=== PATIENT | female | born 1970 | race Caucasian/White ===

== ENCOUNTER 2016-12-21 22:48 | Observation (INO) | payer BC ==
--- NOTE | ~2016-12-21 | HP ---
History And Physical [id number] [place]. [address] NAME: JAMSHID SANTANA : 66 STATUS : ADM Kelle PAT#: [id number] AGE: 46 ADM/REG DATE : 12/21/16 MR#: [id number] REPORT SERV DATE: 12/22/16 DICTATED BY: ANITHA JIMENEZ DATE: 12/22/16 REPORT STATUS : Draft TRANSCRIBED BY: MAX DATE: 12/22/16 DATE OF ADMISSION: 12/21/2016 FIELD PROJECT MANAGER: Kendrick Oates M.D. CHIEF COMPLAINT: Atypical chest pain. HISTORY OF PRESENT ILLNESS: A very pleasant 46-year-old white female with no known history of CAD, states that yesterday at work in the morning while talking to a co-worker she developed a chest pain. She thought it was acid reflux, she took some Tums with no relief. The discomfort persisted throughout the morning, she actually became nauseous. She describes her discomfort as a "dull ache." She decided to eat lunch of a chicken sandwich, but the discomfort persisted. She tried Zantac and Phazyme. She reports associated nausea and belching, but no shortness of breath, diaphoresis, or dizziness. At home, the discomfort actually radiated into her left side. She reports a blood pressure at home of 170/100. At its most intense, the chest pain was a 5/10. At time of interview in the [facility], she rates it a 1 out of 10, and the episodes lasted "most of the day." The patient denies any personal history of myocardial infarction, stroke, DVT, or pulmonary embolus. The patient denies any recent fever or chills. Does describe some palpitations. Consumes two 12-ounce Mountain Dews per day or less. No syncopal episodes. Denies PND or orthopnea. PAST MEDICAL HISTORY: 1. Hypertension. 2. Dyslipidemia with reported elevated high HDL, currently not on a statin and followed by PCP. 3. GERD. 4. Tobacco abuse. SURGICAL HISTORY: 1. Hysterectomy. 2. Cholecystectomy. 3. Tonsillectomy. 4. Right shoulder repair. SOCIAL HISTORY: She is with blended family of four children. 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 She walks on a treadmill 30 minutes per day four times per week without incident. Smokes one-half to a pack of cigarettes per day for 30 years. Rarely consumes alcohol. Denies illicits. FAMILY HISTORY: No embolic events reported in first-degree relatives. REVIEW OF SYSTEMS: A 14-point review of systems performed, significant for HPI. No other contributory diagnoses identified. History And Physical [address] [place]. [address] NAME: JAMSHID SANTANA : 66 STATUS : ADM Kelle PAT#: [id number] AGE: 46 ADM/REG DATE : 12/21/16 MR#: [id number] REPORT SERV DATE: 12/22/16 DICTATED BY: ANITHA JIMENEZ DATE: 12/22/16 REPORT STATUS : Draft TRANSCRIBED BY: MAX DATE: 12/22/16 ALLERGIES: PHENERGAN, DOUBLE VISION; REGLAN, ANXIETY; AND AMLODIPINE, RASH. MEDICATIONS: Home medicines aspirin 81 mg daily and p.r.n.; vitamin B12, 1500 mcg daily; losartan 100 mg daily, and Ambien 5 to 10 mg nightly. PHYSICAL EXAMINATION: BLOOD PRESSURE: 139/76. PULSE: 61. RESPIRATORY RATE: 16. TEMPERATURE: 97.9. O2 saturation 96% on room air. HEIGHT: 5 feet 3 inches. WEIGHT: 173 pounds. BMI 30. GENERAL: Cooperative, in no apparent distress. HEENT: Pupils 2 mm, sclera nonicteric. Nares patent. Moist mucous membranes. No xanthelasma. NECK: Trachea midline, no thyromegaly. No JVD. No bruits. LYMPH: No cervical lymphadenopathy. No supraclavicular lymphadenopathy. RESPIRATORY: Unlabored respirations. Breath sounds clear bilaterally to posterior auscultation. No wheezes or rhonchi. CARDIOVASCULAR: Regular rate. No murmur, rub or gallop appreciated. Extremities without edema. Pulses 2+ bilaterally. ABDOMEN: Soft, nontender, nondistended, normal bowel sounds auscultated throughout. No organomegaly. SKIN: Warm, dry extremities. No pallor, or cyanosis. PSYCHIATRIC: Appropriate affect. Alert, oriented x3. LABORATORY DATA: Troponin less than 0.02 x3. Potassium 3.5, BUN 14, creatinine 0.94, glucose 115, magnesium 2.1, WBC 6.4, hemoglobin 13.2, hematocrit 38.3, and platelet count 223,000. EKG: Sinus rhythm, first-degree AV block, PRWP. MPI, 04/2014: Tony stage 3, 7 minutes, 10 METs, no ischemia. ASSESSMENT AND PLAN: 1. Chest pain in patient with risk factors. Has been observed in the CPOU overnight to rule out myocardial infarction with serial enzymes and serial EKGs and held n.p.o. We will proceed with MPI today. Home if low risk, no ischemia. If anything suggestive of ischemia, Cardiology referral will be initiated. Otherwise, the patient be asked to follow up with her PCP and Dr. Oates as appropriate. 2. Hypertension, monitor blood pressure and continue home medications. 3. Dyslipidemia, diet and exercise discussed. Reports cholesterol followed by PCP. 4. Tobacco abuse, counseled regarding cessation for cardiovascular health and well being. JONNIE/MAX Anitha Jimenez, MSN, HOUSE MANAGER-BC / [phone] History And Physical [address] [address] NAME: JAMSHID SANTANA : 66 STATUS : ADM Kelle PAT#: [id number] AGE: 46 ADM/REG DATE : 12/21/16 MR#: [id number] REPORT SERV DATE: 12/22/16 DICTATED BY: ANITHA JIMENEZ DATE: 12/22/16 REPORT STATUS : Draft TRANSCRIBED BY: MODL DATE: 12/22/16 CC: Anitha Jimenez, MSN, HOUSE MANAGER-BC Saleem Ramos M.D. Kendrick Oates M.D.
[~2016-12-21 22:48] MED LIST: AMB10 PO; MICROZIDE PO; MYTAB GAS125 MG PO; NASACORTAQ NAS; PHENTERMINE37.5 M1 PO; ZANTAC 150 PO; [UNRECOGNIZED DRUG - OTHER] PO; [UNRECOGNIZED DRUG - OTHER] PO
[2016-12-21 23:02] LABS: BASOPHILS 0.2 %; BASOPHILS ABSOLUTE 0.01 10/3/uL (0.0-0.16); EOSINOPHILS ABSOLUTE 0.13 10/3/uL (0.0-0.53); HEMATOCRIT 38.3 % (36.0-48.0); HEMOGLOBIN 13.2 g/dL (12.0-16.0); IMMATURE GRANULOCYTES 0.2 %; IMMATURE GRANULOCYTES ABSOLUTE 0.01 10/3/uL (0.0-0.11); LYMPHOCYTES ABSOLUTE 2.37 10/3/uL (0.67-4.30); MEAN CORPUS HGB CONC 34.5 g/dL (32.0-36.0); MEAN CORPUSCULAR HEMOGLOB 32.8 pg (26.0-34.0); MEAN PLATELET VOLUME 9.6 fL (9.2-13.0); MONOCYTES 6.4 %; MONOCYTES ABSOLUTE 0.41 10/3/uL (0.21-1.20); NEUTROPHILS 54.2 %; NEUTROPHILS ABSOLUTE 3.47 10/3/uL (2.02-8.40); PLATELET COUNT 223 10/3/uL (150-400); RBC DISTRIBUTION WIDTH 13.5 % (12.0-16.0); RED CELL COUNT 4.03 10/6/uL (4.0-5.6); WHITE BLOOD CELLS 6.4 10/3/uL (4.5-10.5)
[2016-12-21 23:03] LABS: ER CBC TAT 0 Hrs 03 MinsNP; MANUAL DIFF NO %
[2016-12-21 23:10] LABS: PARTIAL THROMBO TIME 29.2 SEC (22.5-37.2); PROTIME (NOT ORD) 12.6 SEC (12.0-14.5)
[2016-12-21 23:19] LABS: BUN (BLOOD UREA NITROGEN) 14 MG/DL (6-23); CALCIUM, SERUM 9.5 MG/DL (8.5-10.4); CHEST PAIN PROFILE TAT 0 Hrs 20 Mins; CHLORIDE, SERUM 110 MMOL/L (96-112); CO2 (CARBON DIOXIDE) 28 MMOL/L (24-34); CREATININE 0.94 MG/DL (0.55-1.02); GFR AFRICAN AMERICAN 83 ML/MIN (>=60); GFR NON AFRICAN AMERICAN 72 ML/MIN (>=60); POTASSIUM, SERUM 3.5 MMOL/L (3.5-5.3); SODIUM, SERUM 145 MMOL/L (135-148); TROPONIN I <0.02 NG/ML (<0.05)
[2016-12-21 23:20] LABS: GLUCOSE, SERUM 115 MG/DL (60-99)
[2016-12-22] MEDS ORDERED: ASAB PO ×2 (00:05)
[2016-12-22] MEDS ORDERED: AMB5 PO (00:06)
[2016-12-22] MEDS ORDERED: VITAMIN B-121000 MC1 SL (00:06)
[2016-12-22] MEDS ORDERED: COZAAR100 MG PO (00:07)
== END 2016-12-22 14:04 | disposition home or self-care (01) ==
LOC: ER 22:48 → CDU1 23:59
PROVIDERS: Nurse Practitioner
DX: R07.89 Other chest pain (principal); I10 Essential (primary) hypertension; E78.5 Hyperlipidemia, unspecified; K21.9 Gastro-esophageal reflux disease without esophagitis; Z72.0 Tobacco use; Z90.710 Acquired absence of both cervix and uterus; Z90.49 Acquired absence of other specified parts of digestive tract; Z90.89 Acquired absence of other organs; Z98.890 Other specified postprocedural states; Z88.8 Allergy status to other drugs, medicaments and biological substances; Z79.82 Long term (current) use of aspirin; Z79.899 Other long term (current) drug therapy
CPT/HCPCS: 71010; 78452; 80048; 83735; 84484; 85025; 85610; 85730; 93005; 93017; 99285; A9270-GY; A9502; G0378